=== PATIENT | male | born 1950 | race Caucasian/White ===

== ENCOUNTER 2016-07-31 15:27 | Emergency (ER) | payer MEDICARE, OTHER ==
[2016-07-31 17:17] LABS: ABSOLUTE NEUTROPHIL COUNT 4.8 K/mm3 (1.8-7.7); BASO # 0.1 K/mm3 (0.0-0.2); BASO % 0.9 % (0.2-1.0); EOS # 0.4 (0.0-0.5); EOS % 4.4 % (0.9-2.9); HEMATOCRIT 31.2 % (32.0-52.0); HEMOGLOBIN 10.6 gm/l (14.0-18.0); IMM NEUT% 0.3 % (0-1); LYMPH # 3.2 (1.0-4.8); LYMPH % 35.1 % (15-45); MEAN CELL VOLUME 92.3 fl (80.0-94.0); MEAN CORPUSCULAR HEMOGLOBIN 31.4 pg (27.0-31.0); MEAN PLATELET VOLUME 10.1 fl (7.4-10.4); MONO # 0.7 (0.0-0.8); MONO % 7.3 % (4-12); PLATELET COUNT 194 K/mm3 (130-400)
[2016-07-31 17:39] LABS: ALB/GLOB RATIO 1.2 (>1.0); ALBUMIN 4.3 gm/dL (3.5-5.7)
--- NOTE | 2016-07-31 17:59 | RAD ---
Name: EVON MARTINEZ Exam: Two-view chest Comparison: 08/06/2010 Clinical history: Wheezing cough Findings: 2 views of the chest are submitted. The heart mediastinum and hilar structures are within normal limits. There is no failure, infiltrate, pleural effusion or pneumothorax. Regional skeleton is within normal limits. Impression: No acute cardiopulmonary process
== END 2016-07-31 18:25 | disposition home or self-care (01) ==
LOC: ED 15:27
DX: J40 Bronchitis, not specified as acute or chronic (principal); I10 Essential (primary) hypertension; E11.9 Type 2 diabetes mellitus without complications; Z79.84 Long term (current) use of oral hypoglycemic drugs